=== PATIENT | female | born 1940 | race Caucasian/White ===

== ENCOUNTER → 2017-11-21 | Outpatient (CLI) | payer OTHER, BC ==
[~2017-11-21] MED LIST: BUPROPION XL150 MG PO; COLACE100 MG PO; LISINOPRIL20 MG PO; METFORMIN HCL500 MG PO; MOBIC15 MG PO; NORCO 10-325 T1 EACH PO; TRAMADOL 50 MG50 MG PO; TUMS PO; ZOCOR20 MG PO
== END ==
LOC: NUC 09:27
DX: K90.49 Malabsorption due to intolerance, not elsewhere classified (principal); R14.0 Abdominal distension (gaseous); R10.9 Unspecified abdominal pain; R14.1 Gas pain; E11.9 Type 2 diabetes mellitus without complications; I10 Essential (primary) hypertension; E78.00 Pure hypercholesterolemia, unspecified; Z87.891 Personal history of nicotine dependence

== ENCOUNTER 2019-03-30 17:02 | Inpatient (IN) | payer OTHER, BC ==
[~2019-03-30] VITALS: Ht 172.7 cm; Wt 102.1 kg
[2019-03-30 17:02] VITALS: BP 166/65
[~2019-03-30 17:02] MED LIST changes: +ASPIR 8181 MG PO; +GLIPIZIDE ER2.5 MG PO; +HYDROCODONE-AP1 EAC6 PO; +METFORMIN HCL1000 MG PO; +PRILOSEC 20 MG20 MG PO
[2019-03-30 19:26] LABS: BASOPHILS 0.2 % (0.0-2.0); EOSINOPHILS 0.2 % (0.0-3.0); HEMATOCRIT 39.4 % (37.0-47.0); HEMOGLOBIN 12.7 gm/dL (12.0-15.0); LYMPHOCYTES 7.9 % (24.0-44.0); MCH 29.2 pg (26.0-34.0); MCHC 32.3 g/dL (28.0-37.0); MCV 90.5 fL (80.0-100.0); MONOCYTES 5.1 % (1.0-8.0); PLATELET COUNT 172 thou/uL (150-400); POLYS 86.6 % (36.0-66.0); RBC 4.35 mil/uL (4.20-5.00); RDW 14.5 % (10.5-14.5)
[2019-03-30 19:34] LABS: CALCIUM 9.3 mg/dL (8.5-10.1); CREATININE 1.1 mg/dL (0.6-1.0); POTASSIUM 4.7 mmol/L (3.5-5.1)
[2019-03-30 19:40] LABS: ALBUMIN 3.6 g/dL (3.4-5.0); APTT 25.7 Seconds (24.5-32.8); PROTIME 10.7 Seconds (9.3-11.4); TOTAL BILIRUBIN 0.2 mg/dL (<0.1-1.0); TOTAL PROTEIN 7.6 g/dL (6.4-8.2)
[2019-03-30] MEDS ORDERED: BETAMETHASONE D50 G2 TOP (20:18)
[2019-03-30 20:30] LABS: URINE BILIRUBIN NEGATIVE (Negative); URINE BLOOD NEGATIVE (Negative); URINE CLARITY CLEAR; URINE COLOR YELLOW; URINE GLUCOSE-RANDOM* NEGATIVE (Negative); URINE KETONES NEGATIVE (Negative); URINE LEUKOCYTES-REFLEX NEGATIVE (Negative); URINE NITRITE-REFLEX NEGATIVE (Negative); URINE PROTEIN (DIPSTICK) 1+ (Negative); URINE SPECIFIC GRAVITY >= 1.030 (1.005-1.035); URINE UROBILINOGEN 0.2 E.U./dl (0.2-1.0)
[2019-03-30 20:53] VITALS: BP 140/55
[2019-03-30 21:14] VITALS: BP 140/55
[2019-03-30 21:17] LABS: MUCUS 0-3 Light strn/LPF (None Seen); SQUAMOUS None Seen /LPF (0-3); URINE WBC-REFLEX None Seen /HPF (0-5)
[2019-03-30 21:18] LABS: BACTERIA-REFLEX None Seen /HPF (None Seen); CRYSTALS None Seen /LPF (None Seen); HYALINE CASTS 0-3 Few /LPF (None Seen); URINE RBC 0-2 Rare /HPF (0-2)
--- NOTE | 2019-03-31 03:10 | NUR ---
PT ARRIVED ON UNIT AT 2100--ADMITTED WITH RIGHT HUMERUS FRACTURE POST FALL AT HOME. AMBULATING TO BATHROOM WITH STANDBY ASSIST AND IS TOLERATING FAIR. MORPHINE--LORTAB AND TORADOL PROVIDING PAIN RELIEF. DENIES NAUSEA. PLAN FOR POSSIBLE SURGERY 03/31. RESTING COMFORTABLY. NO NEEDS VOICED. CALL LIGHT WITHIN REACH. WILL CONTINUE TO PROVIDE FREQUENT OBSERVATION.
[2019-03-31 04:12] VITALS: BP 143/57
[2019-03-31 06:30] LABS: HEMOGLOBIN 11.4 gm/dL (12.0-15.0); MCH 30.1 pg (26.0-34.0); MCHC 33.5 g/dL (28.0-37.0); MCV 89.7 fL (80.0-100.0); RBC 3.79 mil/uL (4.20-5.00); RDW 14.6 % (10.5-14.5); WBC 9.3 thou/uL (4.0-11.0)
[2019-03-31 06:45] LABS: CALCIUM 8.8 mg/dL (8.5-10.1); CREATININE 1.1 mg/dL (0.6-1.0); POTASSIUM 4.8 mmol/L (3.5-5.1)
--- NOTE | 2019-03-31 08:09 | NUR ---
PT ALERT XS 4. ASSISTED TO BATHROOM PT CONT OF B&B. NO PAIN AT PRESENT.
--- NOTE | 2019-03-31 08:13 | EKG ---
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
[2019-03-31 08:45] VITALS: BP 148/54
--- NOTE | 2019-03-31 12:16 | NUR ---
INITIAL ASSESSMENT: Pt evaluated for d/c planning needs. Reviewed chart and spoke with nurse, pt and spouse. Pt is alert and oriented. Pt lives in house with spouse and was independent with ADL's prior to admission to the hospital. Pt has walker at home and has had [facility] in the past. Pt is scheduled to have surgery today. Pt and spouse may be interested in SNF on d/c from hospital. Pt lives in [place]. Pt and spouse given list of skilled facilities. They will look at list and speak with family/friends. Will follow along and make referrals as needed depending on PT/OT recommendations.
--- NOTE | 2019-03-31 20:18 | NUR ---
CALLED POST-OP PATIENT IS THERE WILL BE APPROX. 2100
--- NOTE | 2019-03-31 21:52 | O ---
[address] [address] OPERATIVE REPORT Name: INA SINGH Room #: 435-P ADM IN M.R.#: [id number] Admission: 03/30/19 Attend Phys: Dominic Lr Discharge: Date of : 44 Report #: [id number] THIS REPORT FOR: //name// CC: Dominic Gregg DATE OF SERVICE: 03/31/2019 SERVICE: Orthopedics. FACILITY: [facility]. SURGEON: Boone Galicia MD. COMMERCIAL ESCROW OFFICER: Zoe Vaca NP. INDICATION FOR COMMERCIAL ESCROW OFFICER: Extremity positioning, assistance with the exposure, reduction, retraction, provisional fixation and closure. PREOPERATIVE DIAGNOSES: 1. Status post fall. 2. Comminuted displaced right proximal humerus fracture. 3. Diabetes. 4. Obesity. POSTOPERATIVE DIAGNOSES: 1. Status post fall. 2. Comminuted displaced right proximal humerus fracture. 3. Diabetes. 4. Obesity. PROCEDURE: Open reduction and internal fixation, right proximal humerus fracture. COMPLICATIONS: None. DRAINS: None. SPECIMENS: None. ANESTHESIA: General with regional. FINDINGS: 1. Synthes 6-hole proximal humeral periarticular plate. 2. Provisional fixation with a cerclage FiberWire. 3. Screws confirmed to be safely within the bone and not penetrating the joint [address] [address] OPERATIVE REPORT Name: INA SINGH Room #: 435-P [facility] IN M.R.#: [id number] Admission: 03/30/19 Attend Phys: Dominic Lr Discharge: Date of : 44 Report #: [id number] on multiple planes of x-ray intraoperatively. 4. Increased complexity of this case due to the large soft tissue envelope and the severe displacement and comminution. POSTOPERATIVE PLAN: Abduction to 45 degrees. External rotation is 60 degrees, forward flexion to 90 degrees for range of motion x 4 weeks. HISTORY: The patient is a 78-year-old right-hand dominant female who took a fall at home yesterday and sustained a severely displaced right proximal humerus fracture and had extension into the tuberosities. She is indicated for surgical treatment based on the severity of the injury. Risks, benefits, alternatives, and indication of surgery discussed with her. Risks include but not limited to pain, bleeding, infection, injury to nerves or blood vessels, malunion, nonunion, need for further surgery including revision as well as hardware removal as well as permanent dysfunction of the arm related to stiffness and weakness as well as complications related to anesthesia up to and including . Despite these risks, she wished to proceed. PROCEDURE IN DETAIL: After right upper extremity was correctly identified in preoperative holding area as the operative extremity, the patient underwent placement of a single shot regional nerve block. She was then taken to the operating room where general anesthesia was induced without complication. She seated beachchair position, padded appropriately. Prophylactic antibiotics were administered at appropriate time. Right arm was prepped and draped in standard sterile fashion. Timeout procedure performed. Standard anterior approach was made to the shoulder via a deltopectoral interval. Exposure was more involved than typical due to the degree of soft tissue envelope and obesity. Additional retractors were required for visualization with a longer skin incision. The cephalic vein was visualized. There was quite a bit of contused soft tissues. There was also some tearing of the muscle tissue itself specifically over the anterior deltoid and the upper pectoralis secondary to the severity of the trauma. I had to release the upper border of the pectoralis in order to obtain access to the fracture site. The exposure was quite difficult due to the large soft tissue envelope at her large deltoid muscle in general. The fracture was exposed and the fracture hematoma was thoroughly evacuated, worked with the provisional fixation for quite some time, trying manual fixation, manual reduction with traction, rotation, ultimately identifying the best position, but then required some additional exposure to remove some additional fracture hematoma that was blocking the reduction. I then obtained a provisional reduction and placed a percutaneous K-wire to hold the fracture, but this did not afford appropriate angle for fixation and could not keep this provisional fixation with selected plate. The orientation of the diaphyseal fracture fragment was also such that it could not be accessed easily with an [address] [address] OPERATIVE REPORT Name: INA SINGH Room #: 435-P [facility] IN M.R.#: [id number] Admission: 03/30/19 Attend Phys: Dominic Lr Discharge: Date of : 44 Report #: [id number] interfragmentary lag screw and after working with the fracture in the exposure for some time, I ultimately selected a provisional fixation with a cerclage suture. I performed a subperiosteal dissection around the anterior medial aspect of the humerus being sure to be deep to the biceps and then working around the back side deep to all soft tissue including the triceps and with blunt dissection I was able to pass a cerclage passing device directly against the bone circumferentially and then using #5 FiberWire with a locking cerclage suture technique to provide a compressive force and hold the provisional reduction in good position. I then selected a plate that appeared to fit appropriately, pinned it to the proximal humerus and then also to the shaft. I placed two #5 FiberWire sutures in the rotator cuff to allow control of the tuberosity fragment. The C-arm was brought in. I assessed the alignment. I was happy with the position of the plate as well as the provisional reduction and the alignment of the calcar and the head relative to the shaft. There was no varus present and was therefore satisfied with this, so I fix the plate to the shaft distally and then accept the length and then used the provisional pin fixation for stability proximally and then placed the calcar screw in the appropriate position and then filled all locking screws proximally as this patient has diabetes and is at risk for delayed union and nonunion and was unsure to not penetrate the articular surface where the anterior and posterior cortices. The K wires were placed in the lower K-wire holes stating the upper ones for the #5 FiberWire sutures which were passed through the plate in order to allow tying of the rotator cuff for reinforcement. After the screws were placed proximally completed fixation on the shaft selecting for a total of 4 screws with 8 cortices of fixation, spanning the segmental cortical injury that was now fixed with the #5 FiberWire cerclage suture and then knot was positioned underneath the screw hole. After this was completed, I brought the C-arm in and took final x-rays confirming appropriate position of the plate and screws in multiple planes. I was happy with the fracture alignment and accepted the final position. The wound was then copiously irrigated. A gram of vancomycin powder was placed all over the plate and then the deep layer was closed with 0 Vicryl suture in [id number] fashion, the fat layer was closed with 0 Vicryl and the skin was closed with 2-0 Vicryl followed by joel and sterile dressing was applied. The patient was placed in a sling, awakened from anesthesia and taken to recovery room in stable condition. No complications. All counts were recorded as correct. <ELECTRONICALLY SIGNED> By: Boone Galicia MD 03/31/192151 09 28 Boone Galicia MD /nt
[2019-03-31 23:30] VITALS: BP 169/64
[2019-04-01] VITALS (10 sets, daily range): BP systolic 130–155; BP diastolic 48–67
[2019-04-01 00:08] LABS: GLYCOHEMOGLOBIN (HGB A1C) 7.5 % (4.8-5.6)
--- NOTE | 2019-04-01 04:12 | NUR ---
ASSUMED PT CARE AT 1900. PT RETURNED FROM SURGERY AROUND 2200. REASSESSMENT COMPLETED, PT DENIES PAIN. UP TO BATHROOM TONIGHT. CLEAR LIQUID DIET. ENOXAPARIN HELD DUE TO PHARM NOTE TO START 20HRS AFTER SURGERY. PT RESTING COMFORTABLY.
[2019-04-01 07:02] LABS: HEMATOCRIT 31.8 % (37.0-47.0); HEMOGLOBIN 10.3 gm/dL (12.0-15.0); MCH 29.7 pg (26.0-34.0); MCHC 32.4 g/dL (28.0-37.0); MCV 91.7 fL (80.0-100.0); RBC 3.47 mil/uL (4.20-5.00); RDW 14.6 % (10.5-14.5); WBC 12.1 thou/uL (4.0-11.0)
[2019-04-01 07:10] LABS: CALCIUM 8.1 mg/dL (8.5-10.1); CREATININE 0.9 mg/dL (0.6-1.0); POTASSIUM 4.7 mmol/L (3.5-5.1)
--- NOTE | 2019-04-01 10:49 | NUR ---
PT AMBULATING THE HALLS WITH THERAPY. PT ALERT XS 1 WITH NO RESP DISTRESS. NO PAIN AT PRWESENT.
--- NOTE | 2019-04-01 14:52 | NUR ---
S/W PT AND IN ROOM AND SPOUSE TOURED [facility] THIS AM. ASKED DC CAR SHAGGER TO FAX REFERRAL AND PT WILL MOST LIKELY BE READY FOR DC TOMORROW.
--- NOTE | 2019-04-01 15:09 | NUR ---
FAXED [place]FERR[place] [facility] [place]POKE WITH CHRISTOPHER IN ADM SHE RECEIVED REFERRAL AND CAN ACCEPT AT DC. ANTICIPATE DC TOMORROW 04/02. DP TO FOLLOW.
--- NOTE | 2019-04-02 02:34 | NUR ---
ASSUMED PT CARE AT 1900. IV LEAKING AND BLOODY, D/C FLUIDS PER ORDER. PT WAS COMPLAINING OF SEVERE HEADACHE AND SORENESS IN R SHOUDLER. PAIN MEDS GIVEN WITH PARTIAL RELIEF. SMALL TEMP NOTED AT BEGINNING OF SHIFT. UP TO BATHROOM FINE. PLANS TO DISCHARGE IN AM TO REHAB FACILITY.
[2019-04-02 04:10] VITALS: BP 154/58
[2019-04-02 07:38] VITALS: BP 142/53
[2019-04-02 08:28] VITALS: BP 142/53
[2019-04-02] MEDS ORDERED: SENNA PLUS TAB1 EACH PO (10:19)
[2019-04-02] MEDS ORDERED: NORCO 10-325 T1 EACH PO (10:19)
[2019-04-02] MEDS ORDERED: HUMALOG100 UNIT/1 SUBQ (10:27)
--- NOTE | 2019-04-02 13:08 | NUR ---
PT DISCHARGING TODAY TO [facility] [place] FAXED DC ORDERS/SUMMARY TO FACILITY SPOKE WITH CHRISTOPHER IN ADN SHE RECEIVED DC ORDERS AND ARRANGED TRANSPORTATION BY [facility] FOR 1400 TODAY. PT'S AT BEDSIDE AND NOTIFIED OF DC AND TIME OF TRANSPORT. UNIT NOTIFIED AND CHART COPY PER US. RN TO CALL REPORT TO [phone].
--- NOTE | 2019-04-02 14:19 | NUR ---
PT ALERT AND ORIENTED TIMES FOUR. VSS, PT C/O PAIN PRN MEDICATIONS GIVEN WITH SOME RELIF. RIGHT ARM DRESSING AND SLING IN PLACE. PT TOLERATES MEDS AND MEALS. PT UP WITH STANDBY ASSIST. PLANS TO DISCHARGE FOR REHAB TODAY. PT PROGRESSING TOWRADS POC GOALS.
== END 2019-04-02 14:21 | DRG 492 ==
LOC: ER 17:02 → EROBS 20:16 → 4S 20:16
PROVIDERS: Nurse Practitioner; Orthopaedic Surgery Sports Medicine; Physician Assistant; ADMIT Hospitalist
PROC: 0PSC04Z Reposition Right Humeral Head with Internal Fixation Device, Open Approach (ICD-10-PCS; principal; 2019-03-31)
DX: S42.291A Other displaced fracture of upper end of right humerus, initial encounter for closed fracture (principal); E43 Unspecified severe protein-calorie malnutrition; D62 Acute posthemorrhagic anemia; I10 Essential (primary) hypertension; K21.9 Gastro-esophageal reflux disease without esophagitis; F32.9 Major depressive disorder, single episode, unspecified; Z96.651 Presence of right artificial knee joint; M19.90 Unspecified osteoarthritis, unspecified site; E53.8 Deficiency of other specified B group vitamins; E66.9 Obesity, unspecified; E11.9 Type 2 diabetes mellitus without complications; W01.0XXA Fall on same level from slipping, tripping and stumbling without subsequent striking against object, initial encounter; Y93.89 Activity, other specified; Y92.89 Other specified places as the place of occurrence of the external cause; Y99.8 Other external cause status; Z98.42 Cataract extraction status, left eye; Z98.41 Cataract extraction status, right eye; Z91.040 Latex allergy status; Z68.34 Body mass index [BMI] 34.0-34.9, adult; Z87.891 Personal history of nicotine dependence; Z90.49 Acquired absence of other specified parts of digestive tract; Z90.5 Acquired absence of kidney; Z47.89 Encounter for other orthopedic aftercare
CPT/HCPCS: 10100; 10195; 50010; 50101; 50172; 50341; 50386; 50417; 50733; 51320; 51412; 52001; 52282; 54330; 55430; 56525; 56528; 56531; 56667; 57103; 62110; 62900; 64039; 70005

== ENCOUNTER 2019-09-17 06:02 | Day surgery (SDC) | payer OTHER, BC ==
[~2019-09-17] VITALS: Ht 172.7 cm; Wt 97.1 kg
[~2019-09-17 06:02] MED LIST changes: +ACETAMINOPHEN325 M1 PO; +ASPIR 8181 M1 PO; +BETAMETHASONE D50 G2 TOP; +FAMOTIDINE 20 M20 MG PO; +HAIR, SKIN AND1 EAC1 PO; +HUMALOG100 UNIT/1 SUBQ; +HYTRIN 2MG CAPSU2 M1 PO; +ROSUVASTATIN CAL5 MG PO; +SENNA PLUS TAB1 EACH PO; +TAMSULOSIN HCL0.4 MG PO; +VITAMIN D35000 UNI2 PO
[2019-09-17 07:14] VITALS: BP 172/70
[2019-09-17 09:37] VITALS: BP 172/70
--- NOTE | 2019-09-20 13:46 | O ---
[address] [address] OPERATIVE REPORT Name: INA SINGH Room #: DEP [facility].#: [id number] Admission: 09/17/19 Attend Phys: Boone Galicia MD Discharge: 09/17/19 Date of : 44 Report #: [id number] THIS REPORT FOR: cc: Sherwin Gregg,Boone Patton MD ~ CC: Boone Gregg DATE OF SERVICE: 09/17/2019 SERVICE: Orthopedics. FACILITY: [place]. SURGEON: Boone Galicia MD WATCH ASSEMBLY INSPECTOR: Zoe Vaca. INDICATION FOR WATCH ASSEMBLY INSPECTOR: Retraction and extremity positioning. PREOPERATIVE DIAGNOSES: 1. Retained orthopedic implant, right shoulder. 2. Right shoulder stiffness. 3. Status post open reduction and internal fixation, right proximal humerus fracture. 4. Diabetes. POSTOPERATIVE DIAGNOSES: 1. Retained orthopedic implant, right shoulder. 2. Right shoulder stiffness. 3. Status post open reduction and internal fixation, right proximal humerus fracture. 4. Diabetes. PROCEDURES: 1. Right shoulder open hardware removal from proximal humerus plate. 2. LES/MELLISA right shoulder. COMPLICATIONS: None. DRAINS: None. SPECIMENS: None. ANESTHESIA: General. [address] [address] OPERATIVE REPORT Name: INA SINGH [id number] Admission: 09/17/19 Attend Phys: Boone Galicia MD Discharge: 09/17/19 Date of : 44 Report #: [id number] FINDINGS: 1. Successful screw removal. Hardware is stable otherwise. 2. Mild stiffness treated with manipulation. HISTORY: The patient is a 78-year-old female who fell last year and sustained a significantly displaced right proximal humerus fracture. She underwent open reduction and internal fixation. In the course of the healing, she had some settling of the fracture and she had one screw that was penetrating. We treated her to radiographic union and she was not having any symptoms, but the screw penetration was concerning for potential risk for arthritis and cartilage breakdown, so we discussed surgical removal. I did recommend leaving the other hardware in place, so as to serve as reinforcement should she have another fall to avoid the risk of refracture. She was in agreement with this approach. Risks, benefits, alternatives, and indication of surgery discussed with her in detail. Risks include but not limited to pain, bleeding, infection, injury to nerves or blood vessels, need for further surgery, stiffness as well as complications related to anesthesia. Despite these risks, she wished to proceed. PROCEDURE IN DETAIL: After right upper extremity was correctly identified as the operative extremity, the patient was taken to the operating room where general anesthesia was induced without complication. She was padded appropriately. Prophylactic antibiotics were administered at appropriate time. Right arm was prepped and draped in standard sterile fashion. Time-out procedure was performed. The proximal portion of the incision was utilized from the previous surgery and a skin incision was made. Dissection was taken down with full thickness skin flaps. The deltopectoral interval was developed with blunt dissection. Hemostasis was achieved. We worked beneath the deltoid and identified the plate and then the anterior superior screw, which was the only long screw, was successfully removed. We used C-arm to assess the entire construct and I checked each screw with the screwdriver and confirmed that they were all tightened. There was no loose hardware. The fracture was healed. Using a live fluoroscopy approach withdrawal technique to confirm that the screws were all in appropriate position. The subdeltoid adhesions were bluntly released with the finger and then manipulation was performed with forward flexion followed by abduction followed by external rotation and then abduction, external rotation and some improvement in her range of motion with some release of the scar tissue was noted. The wound was copiously irrigated. The deltopectoral layer was closed over a gram of vancomycin powder with 0 Vicryl suture. The skin was closed with 2-0 Vicryl followed by skin closure and sterile dressing was applied. The patient was [address] [address] OPERATIVE REPORT Name: SINGHINA Flores Room #: DEP [facility]#: [id number] Admission: 09/17/19 Attend Phys: Boone Galicia MD Discharge: 09/17/19 Date of : 44 Report #: [id number] awakened from anesthesia and taken to recovery room in stable condition. No complications. All counts were correct. <ELECTRONICALLY SIGNED> By: Boone Galicia MD 09/20/19 1346 1118 1209 Boone Galicia MD /nt
== END 2019-09-17 10:40 | disposition home or self-care (01) ==
LOC: CANPRESDC → TBA 06:02 → OR 06:02
DX: T84.84XA Pain due to internal orthopedic prosthetic devices, implants and grafts, initial encounter (principal); M25.611 Stiffness of right shoulder, not elsewhere classified; I10 Essential (primary) hypertension; E11.9 Type 2 diabetes mellitus without complications; F32.9 Major depressive disorder, single episode, unspecified; K21.9 Gastro-esophageal reflux disease without esophagitis; Z98.890 Other specified postprocedural states; Z79.899 Other long term (current) drug therapy; Z85.528 Personal history of other malignant neoplasm of kidney; Z90.49 Acquired absence of other specified parts of digestive tract; Z98.41 Cataract extraction status, right eye; Z98.42 Cataract extraction status, left eye; Z96.651 Presence of right artificial knee joint; Z87.891 Personal history of nicotine dependence
CPT/HCPCS: 50010; 50101; 50172; 50386; 50417; 50733; 54118; 56525; 56527; 56528; 62110; 62900; 70005